=== PATIENT | male | born 1945 | race Caucasian/White ===

== ENCOUNTER → 2017-11-23 09:24 | Outpatient (CLI) | payer MEDICARE, SELFPAY ==
[2017-11-23 12:59] LABS: Anion Gap 9 (5-15); BUN 12 mg/dL (7-18); BUN/Creat Ratio 9.8 RATIO (10-20); Calcium,Total 8.8 mg/dL (8.5-10.1); Chloride 108 mmol/L (98-107); Cholesterol 208 mg/dL (200); Creatinine, Serum 1.22 mg/dL (0.70-1.30); EST Glomerular Filtration Rate 62 mL/min (>60); Est Glom Filt Rate - Afr Amer 75 mL/min (>60); Glucose 92 mg/dL (74-106); High Density Lipoprotein 55 mg/dL; Potassium 4.2 mmol/L (3.5-5.1); Sodium Level 144 mmol/L (136-145); Triglycerides 111 mg/dL; Very Low Density Lipoprotein 22 mg/dL (5-40)
[2017-11-23 13:55] LABS: Hemoglobin A1c 5.9 % (4.2-6.3)
== END ==
PROVIDERS: Family Provider Family Medicine; PCP Family Medicine; Visit Provider Family Medicine
DX: E78.00 Pure hypercholesterolemia, unspecified (principal); R97.20 Elevated prostate specific antigen [PSA]; R73.03 Prediabetes
CPT/HCPCS: 36415; 80048; 80061; 83036; 84153

== ENCOUNTER → 2018-12-13 09:47 | Outpatient (CLI) | payer MEDICARE, SELFPAY ==
[2018-12-13 12:08] LABS: Absolute Lymphocyte Count 2.44 X10^3/ul (0.83-4.51); Absolute Neutrophil Count 3.6 X10^3/uL (2.0-7.7); Basophil# 0.04 X10^3/uL; Basophil% 0.6 % (0-1); Eosinophil# 0.07 X10^3/uL; Eosinophils% 1.1 % (0-5); Hematocrit 43.4 % (40-54); Hemoglobin 14.3 g/dl (13.0-16.5); Lymphocyte # 2.44 X10^3/ul (4.0); Lymphocyte % 36.7 % (19-41); Mean Corp Hgb Conc 32.9 g/gl (32-36); Mean Corpuscular Hgb 29.5 pg (27.0-32.0); Mean Corpuscular Volume 89.7 fL (80-94); Mean Platelet Vol. 12.6 fl (6.2-12.0); Monocyte# 0.45 X10^3/uL; Monocyte% 6.8 % (0-10); Neutrophil # 3.63 X10^3/uL (2.7-7.7); Neutrophil % 54.6 % (47-70); POSITIVE COUNT NO; POSITIVE DIFFERENTIAL NO; POSITIVE MORPHOLOGY NO; Platelet Count 234 K/mm3 (150-450); RBC Distribution Width CV 14.5 % (11.6-14.6); RBC Distribution Width SD 47.5 fl (35.1-43.9); Red Blood Count 4.84 M/mm3 (4.6-6.2); White Blood Count 6.6 K/mm3 (4.4-11.0)
[2018-12-13 12:30] LABS: Anion Gap 8 (5-15); BUN 13 mg/dL (7-18); BUN/Creat Ratio 11.3 RATIO (10-20); Calcium,Total 9.4 mg/dL (8.5-10.1); Chloride 107 mmol/L (98-107); Cholesterol 184 mg/dL (200); Creatinine, Serum 1.15 mg/dL (0.70-1.30); EST Glomerular Filtration Rate 66 mL/min (>60); Est Glom Filt Rate - Afr Amer 80 mL/min (>60); Glucose 101 mg/dL (74-106); High Density Lipoprotein 70 mg/dL; PSA,Total- Diagnostic 4.68 ng/mL (0.0-4.0); Potassium 3.6 mmol/L (3.5-5.1); Sodium Level 143 mmol/L (136-145); Triglycerides 83 mg/dL; Very Low Density Lipoprotein 17 mg/dL (5-40)
== END ==
PROVIDERS: Family Provider Family Medicine; PCP Family Medicine; Referring Provider Family Medicine; Visit Provider Family Medicine
DX: R41.3 Other amnesia (principal); E78.00 Pure hypercholesterolemia, unspecified
CPT/HCPCS: 36415; 80048; 80061; 84153; 85025

== ENCOUNTER 2019-03-24 09:11 | Observation (INO) | payer MEDICARE, SELFPAY ==
[2019-03-24] VITALS (10 sets, daily range): BP systolic 122–146; BP diastolic 66–87; PULSE 52–84; RESP 16–18; TEMP 35.9–36.8; O2SAT 97–100; BMI 25.8; BMI 24.4
--- NOTE | 2019-03-24 09:23 | RAD_ITS ---
STUDY: X-RAY CHEST REASON FOR EXAM: Male, 73 years old. Chest pain. TECHNIQUE: Single AP portable view of the chest. COMPARISON: None. FINDINGS: EKG electrodes are seen. Hyperinflation. There is no demonstrated pleural abnormality. Normal size heart. Normal mediastinum and jordan. Normal visualized pulmonary arteries. There is atherosclerotic tortuosity of the aortic arch and descending thoracic aorta. There are diffuse degenerative changes of the visualized thoracic spine. Normal visualized ribs, clavicles, and shoulders. There is no demonstrated abnormality of the visualized soft tissue structures of the upper abdomen. RAD/Chest 1 View (Portable) IMPRESSION: Hyperinflation. Electronically Signed: Fernandez Johansen, at 9:45 EDT , Service support ,
--- NOTE | 2019-03-24 09:23 | EKG12_ITS ---
Test Reason : CP Blood Pressure : / mmHG Vent. Rate : 056 BPM Atrial Rate : 056 BPM P-R Int : 150 ms QRS Dur : 090 ms QT Int : 452 ms P-R-T Axes : 062 004 042 degrees QTc Int : 436 ms Sinus bradycardia with sinus arrhythmia Low Voltage QRS (Limb Leads) Confirmed by ELIO LAYTON, MARIELLE ([id number]), slot editor GENESIS GARCÍA ([id number]) on 03/26/2019 12:21:14 PM Referred By: Confirmed By:MARIELLE BALLARD MD
--- NOTE | 2019-03-24 09:27 | ED.VISSUMM ---
- ER Visit Summary Date of Service: 03/24/19 Chief Complaint: Chest pain History of Present Illness: The patient is a 73 M presents emergency department for evaluation of chest pain. Patient has a history of dementia and was at his daughter. He also has a history of GERD and hypercholesterolemia. He is never had to have a stress test or heart catheterization before. He states that he is normally very healthy individual. During the middle the night he states that he woke had aching in his chest he states that he was nauseous sweaty and short of breath. He eventually was able to get some sleep this morning he notes that he still nauseous and has a slight ache in his chest. He does not take daily aspirin. Physical Examination: Afebrile vital signs are stable noted heart rate of 56 Gen: Well-nourished well-developed Head: Normocephalic atraumatic Eyes: Perrl EOMI ENT: TMs clear no rhinorrhea moist mucous membranes Neck: Supple no lymphadenopathy no JVD nontender CVS: Regular rate rhythm no murmurs normal S1-S2 Respiratory: No distress clear to auscultation bilaterally chest nontender Abdomen: Soft nontender nondistended normal bowel sounds no masses Back: Nontender Extremity: Nontender no edema Skin: Normal color no rash Neuro: alert CN II-XII intact normal strength sensation Psych: Normal affect normal mood Test Results: EKG shows a sinus bradycardia at a rate of 56 without ectopy. She showed a glucose of 138. Initial troponin was negative. CBC was normal. Chest x-ray negative. Emergency Department Course and Treatment: Patient received Zofran and aspirin. He tells me his nausea is better. At this point the patient's MIGUEL score is 1 heart score is 5. Related to the patient's best interest to stay and get repeat cardiac enzymes and further cardiac evaluation. Dr. Cotto will be admitting Impression: 1. Chest pain This note was generated with [employer] dictation software. It may contain incorrect words, spelling, and punctuation that were not noted in review of the chart prior to signing ED Disposition - Plan for ED Patient: Referrals: Mc Velez MD [Family Provider] -
[2019-03-24 09:32] LABS: Absolute Lymphocyte Count 1.61 X10^3/uL (0.83-4.51); Absolute Neutrophil Count 8.8 X10^3/uL (2.0-7.7); Basophil# 0.03 X10^3/uL; Basophil% 0.3 % (0-1); Eosinophil# 0.01 X10^3/uL; Eosinophils% 0.1 % (0-5); Hematocrit 44.7 % (40-54); Hemoglobin 14.6 g/dL (13.0-16.5); Lymphocyte # 1.61 X10^3/ul (4.0); Lymphocyte % 14.8 % (19-41); Mean Corp Hgb Conc 32.7 g/dL (32-36); Mean Corpuscular Volume 91.8 fL (80-94); Mean Platelet Vol. 11.8 fl (6.2-12.0); Monocyte# 0.36 X10^3/uL; Monocyte% 3.3 % (0-10); NRBC Flagged by Analyzer 0 % (0-5); Neutrophil # 8.83 X10^3/uL (2.7-7.7); Neutrophil % 81.1 % (47-70); Platelet Count 231 K/mm3 (150-450); RBC Distribution Width CV 14.1 % (11.6-14.6); RBC Distribution Width SD 47.7 fl (35.1-43.9); Red Blood Count 4.87 M/mm3 (4.6-6.2); White Blood Count 10.9 K/mm3 (4.4-11.0)
[2019-03-24] MEDS: Ondansetron 4 MG/2 ML Vial IV (09:36)
[2019-03-24 09:43] LABS: Anion Gap 6 (5-15); BUN 17 mg/dL (7-18); BUN/Creat Ratio 14.8 RATIO (10-20); Calcium,Total 9.3 mg/dL (8.5-10.1); Chloride 109 mmol/L (98-107); Creatinine, Serum 1.15 mg/dL (0.70-1.30); EST Glomerular Filtration Rate 66 mL/min (>60); Est Glom Filt Rate - Afr Amer 80 mL/min (>60); Estimated Creatinine Clearance 58.19 ml/min; Glucose 138 mg/dL (74-106); Sodium Level 140 mmol/L (136-145)
[2019-03-24] MEDS: Aspirin 81 MG TAB.CHEW 324 MG PO (09:51)
[2019-03-24] MEDS: Enoxaparin 40 MG/0.4 ML Syringe SC (11:00)
--- NOTE | 2019-03-24 11:00 | PCM.HP.STD ---
History of Present Illness Date of Admission: 03/24/19 Chief Complaint: Chest pain The patient is a 73 year old M with a PMH as below presents from home after having an episode of chest pain that woke him up from sleep earlier this morning. He was able to go back to sleep, however when he woke up later in the morning he told his about the chest pain and she brought him into the hospital. His chest pain has completely resolved, and his nausea resolved with Zofran given in the ER. Initial troponin was negative and EKG was unremarkable. He denies any shortness of breath or radiation of his chest pain. He does have mild dementia that he is treated for otherwise he has been generally healthy. Has never had any cardiac illness in the past. Past Medical History Allergies No Known Allergies Allergy (Verified 03/24/19 09:13) Home Medications: Ambulatory Orders Medication Instructions Recorded Atorvastatin Calcium [Lipitor] 20 mg PO DAILY 03/24/19 Donepezil HCl [Aricept] 10 mg PO DAILY 03/24/19 Memantine HCl [Namenda] 5 mg PO BID 03/24/19 Omeprazole 2 tab PO DAILY 03/24/19 Surgical History: no surgical history Lives: Spouse/ Significant Other Smoking Status: Never smoker Alcohol: None Drugs: None - *Family History Maternal History Items: Cancer Paternal History Items: - - Alcohol Sibling History Items: Heart Disease Review of Systems Constitutional: Denies: Chills, Fever, Weight Change HEENT: Denies: Head Aches, Sinus Congestion, Sinus Drainage Cardiovascular: Reports: Chest Pain. Denies: Palpitations Respiratory: Denies: Cough, Shortness of breath at rest, Sputum production Gastrointestinal: Denies: Abdominal Pain, Nausea, Vomiting Genitourinary: Denies: Dysuria Musculoskeletal: Denies: Joint Pain, Joint Tenderness Skin: Denies: Rash, Wounds Neurological: Denies: Numbness, Tingling, Focal weakness Psychiatric: Denies: Anxiety, Depression Hematologic/ Lymphatic: Denies: Easy Bruising, Easy Bleeding VTE Information - Inpt Only VTE Present on Admission: No - Physical Exam General: Alert, Oriented x3, Cooperative, No apparent distress HEENT: Atraumatic, PERRLA, EOMI, Normocephalic Oral: Moist Mucosa Neck: Supple, No JVD Lungs: Clear to auscultation, Normal air movement, No rhonchi, No wheeze, No rales Cardiovascular: Regular rate, Regular Rhythm, Normal S1, Normal S2, No murmurs Abdomen: Soft, Non Tender, Non-Distended, No Hepato-splenomegaly Extremities: No edema, Capillary Refill Less than 3 Seconds Skin: No rashes, No breakdown Neurological: Neuro grossly intact, Sensory exam intact to light touch and pain Psych/Mental Status: Normal Affect, Appropriate Vital Signs Temp Pulse Resp BP Pulse Ox 97.9 F 55 L 18 146/66 H 99 03/24/19 10:46 03/24/19 10:46 03/24/19 10:46 03/24/19 10:46 03/24/19 10:46 Oxygen Delivery Method Room Air Weight: 165 lb 5.547 oz Body Mass Index (BMI) 24.4 Laboratory Tests Past 24 Hrs 03/24/19 03/24/19 09:17 09:17 WBC 10.9 RBC 4.87 Hgb 14.6 Hct 44.7 MCV 91.8 MCH 30.0 MCHC 32.7 RDW Std Deviation 47.7 H RDW Coeff of Akhil 14.1 Plt Count 231 MPV 11.8 Immature Gran % (Auto) 0.400 Neut % (Auto) 81.1 H Lymph % (Auto) 14.8 L [place] % (Auto) 3.3 Eos % (Auto) 0.1 Baso % (Auto) 0.3 Absolute Neuts (auto) 8.8 H Absolute Lymphs (auto) 1.61 Nucleated RBC % 0 Sodium 140 Potassium 4.0 Chloride 109 H Carbon Dioxide 25.0 Anion Gap 6 BUN 17 Creatinine 1.15 Estim Creat Clear Calc 58.19 Est GFR (MDRD) Af Amer 80 Est GFR (MDRD) Non-Af 66 BUN/Creatinine Ratio 14.8 Glucose 138 H Calcium 9.3 Troponin I < 0.015 Assessment/Plan 1. Chest pain/HLD -Will obtain exercise nuclear stress -Serial troponins, the first 1 in the ER was negative -Continue with his statin -Likely need to start an aspirin -Blood pressure is in the 140 systolic, he will likely need to follow-up as an outpatient with his primary care doctor for evaluation and treatment 2. Dementia -Stable -Continue with his home Namenda and Aricept 3. GERD -Stable -Continue with PPI DVT: Lovenox Code Visit OBSV E&M: 19815 Initial observation care L2
--- NOTE | 2019-03-24 12:39 | EKG12_ITS ---
Test Reason : CP ADMISSION Blood Pressure : / mmHG Vent. Rate : 050 BPM Atrial Rate : 050 BPM P-R Int : 162 ms QRS Dur : 082 ms QT Int : 466 ms P-R-T Axes : 053 -14 000 degrees QTc Int : 424 ms Sinus bradycardia Otherwise normal ECG When compared with ECG of 24-MAR-2019 09:17, MANUAL COMPARISON REQUIRED, DATA IS UNCONFIRMED Confirmed by ILIANA LAYTON, EDNA ([id number]), acquisitions editor GENESIS GARCÍA ([id number]) on 04/01/2019 10:50:11 AM Referred By: ISIDRA Confirmed By:ARTURO BARRIENTOS MD
[2019-03-24] MEDS: Donepezil HCl 10 MG Tablet PO (21:24)
[2019-03-24] MEDS: Memantine Hydrochloride 5 MG Tablet PO (21:24)
[2019-03-24] MEDS: Atorvastatin Calcium 20 MG Tablet PO (21:24)
[2019-03-24] MEDS: Zolpidem Tartrate 5 MG Tablet PO (22:12)
--- NOTE | 2019-03-24 22:58 | NURSING ---
Verbal report received from Natalia Churchill RN. This RN will resume care of patient at this time.
[2019-03-25 03:06] VITALS: PULSE 52
[2019-03-25 03:25] VITALS: BP 128/72; PULSE 56; RESP 21; TEMP 36.8; O2SAT 98
[2019-03-25 05:26] VITALS: BP 131/79; PULSE 52; RESP 19; TEMP 36.8; O2SAT 97
--- NOTE | 2019-03-25 05:55 | EKG12_ITS ---
Test Reason : AM EKG Blood Pressure : / mmHG Vent. Rate : 052 BPM Atrial Rate : 052 BPM P-R Int : 156 ms QRS Dur : 090 ms QT Int : 446 ms P-R-T Axes : 060 -10 028 degrees QTc Int : 414 ms Sinus bradycardia Otherwise normal ECG When compared with ECG of 24-MAR-2019 10:38, MANUAL COMPARISON REQUIRED, DATA IS UNCONFIRMED Confirmed by ILIANA LAYTON, EDNA ([id number]), editor & co founder GENESIS GARCÍA ([id number]) on 04/01/2019 10:51:10 AM Referred By: ASHLEY Confirmed By:ARTURO BARRIENTOS MD
[2019-03-25 07:14] VITALS: PULSE 52
[2019-03-25] MEDS: Memantine Hydrochloride 5 MG Tablet PO (10:13)
[2019-03-25] MEDS: Pantoprazole Sodium 40 MG Tablet PO (10:14)
[2019-03-25 10:15] VITALS: BP 119/75; PULSE 68; RESP 16; TEMP 37; O2SAT 95
--- NOTE | 2019-03-25 11:34 | STRESSREP_ITS ---
Stress Test Report Date: 03-25-19 Procedure: Exercise tolerance test/imaging study Indications: Chest pain; shortness of breath Consent: Per the patient Procedure: The patient exercised on a Mekhi protocol for 9 minutes completing Stage III achieving a peak heart rate of 151 bpm (103 % predicted maximal heart rate) with a peak blood pressure 158/90 mmHg and a peak MET capacity of 10 METs. The baseline ECG demonstrated sinus bradycardia. The peak exercise ECG demonstrated somatic/motion artifact with no obvious ECG changes. There were no cardiac dysrhythmias pretest, during exercise, or recovery. The functional capacity was considered. There was no complaint of chest discomfort during exercise or recovery. The examination was discontinued secondary to dyspnea. Impression: 1. Technically adequate (percent predicted maximal heart rate greater than 85%) exercise tolerance test 2. Peak exercise ECG demonstrated somatic/motion artifact with no obvious ECG changes 3. There were no cardiac dysrhythmias pretest, during exercise, or recovery 4. Nuclear images pending Myocardial perfusion imaging study: Technique: The patient was injected with 11.0 mCi of technetium 99m Cardiolite and subsequently rest SPECT Cardiolite nuclear imaging was obtained in the horizontal long, vertical long, and short axis views. The patient exercised on a Mekhi protocol for 9 minutes completing Stage III achieving a peak heart rate of 151 bpm (103 % predicted maximal heart rate) with a peak blood pressure 158/90 mmHg and a peak MET capacity of 10 METs. The patient was injected with 33.2 mCi of technetium 99m Cardiolite and subsequently stress SPECT Cardiolite nuclear imaging was obtained in the horizontal long, vertical long, and short axis v iews. A gated Cardiolite study at peak stress was obtained. Interpretation: Rest and stress SPECT Cardiolite nuclear imaging status post realignment, normalization, and attenuation correction, demonstrates the appearance of extracardiac/gastrointestinal tracer uptake especially near the inferior segments being somewhat more prominent at rest as opposed to stress. Otherwise there appears to be relative uniform tracer uptake. There is end systolic thickening and brightening. The gated Cardiolite study demonstrates myocardial thickening and inward wall motion. The reported LVEF is 77 %. Impression: 1. Rest and stress SPECT Cardiolite nuclear imaging demonstrate the appearance of extra cardiac/gastrointestinal tracer uptake near the inferior segments that appears to be somewhat more prominent at rest as opposed to stress and otherwise appears to demonstrate relative uniform tracer uptake with no myocardial perfusion changes considered diagnostic for associated stress-induced myocardial ischemia. 2. The gated Cardiolite study reports an LVEF of 77 %. This note was generated with [employer] software. It may contain incorrect words, spelling, and punctuation that were not noted in checking the note before signing.
--- NOTE | 2019-03-25 11:43 | DCINST_ITS ---
You will use the following diet at home:: Cardiac Your food should be the consistency of: Regular Your liquids should be the consistency of: Regular/Thin Discharge Activity: Return to Normal Activity Call your doctor if you observe: Fever of 101 or Higher, Shortness of breath, Dizziness, Fainting spells, Swelling in the ankles, Chest pain, Increased palpitations (irregular heartbeat) Allergies/Adverse Reactions: Allergies No Known Allergies Allergy (Verified 03/24/19 09:13) Medications to take at Discharge Atorvastatin Calcium [Lipitor] 20 mg PO DAILY 03/24/19 Donepezil HCl [Aricept] 10 mg PO DAILY 03/24/19 Memantine HCl [Namenda] 5 mg PO BID 03/24/19 Omeprazole 2 tab PO DAILY 03/24/19 Primary Care Physician: Mc Velez MD [Family Provider] - Please follow up with your Primary Care Physician in: 3-5 days Test Results: Test results from this visit will be discussed in further detail at your follow- up appointment, if applicable.
--- NOTE | 2019-03-25 14:24 | DS.PCM_ITS ---
Discharge Date and Diagnosis Date of Admission: 03/24/19 Date of Discharge: 03/25/19 Hospital Course and Treatment Imaging Results: Stress Test: Impression: 1. Technically adequate (percent predicted maximal heart rate greater than 85%) exercise tolerance test 2. Peak exercise ECG demonstrated somatic/motion artifact with no obvious ECG changes 3. There were no cardiac dysrhythmias pretest, during exercise, or recovery 4. Nuclear images pending Myocardial perfusion imaging study: Technique: The patient was injected with 11.0 mCi of technetium 99m Cardiolite and subsequently rest SPECT Cardiolite nuclear imaging was obtained in the horizon zoë long, vertical long, and short axis views. The patient exercised on a Mekhi protocol for 9 minutes completing Stage III achieving a peak heart rate of 151 bpm (103 % predicted maximal heart rate) with a peak blood pressure 158/90 mmHg and a peak MET capacity of 10 METs. The patient was injected with 33.2 mCi of technetium 99m Cardiolite and subsequently stress SPECT Cardiolite nuclear imaging was obtained in the horizontal long, vertical long, and short axis views. A gated Cardiolite study at peak stress was obtained. Interpretation: Rest and stress SPECT Cardiolite nuclear imaging status post realignment, normalization, and attenuation correction, demonstrates the appearance of extracardiac/gastrointestinal tracer uptake especially near the inferior segments being somewhat more prominent at rest as opposed to stress. Otherwise there appears to be relative uniform tracer uptake. There is end systolic thickening and brightening. The gated Cardiolite study demonstrates myocardial thickening and inward wall motion. The reported LVEF is 77 %. Impression: 1. Rest and stress SPECT Cardiolite nuclear imaging demonstrate the appearance of extra cardiac/gastrointestinal tracer uptake near the inferior segments that appears to be somewhat more prominent at rest as opposed to stress and otherwise appears to demonstrate relative uniform tracer uptake with no myocardial perfus ion changes considered diagnostic for associated stress-induced myocardial ischemia. 2. The gated Cardiolite study reports an LVEF of 77 %. Consults: None Operations: None Procedures: Nuclear stress test Summary of Care Provided: Per HPI: The patient is a 73 year old M with a PMH as below presents from home after having an episode of chest pain that woke him up from sleep earlier this morning. He was able to go back to sleep, however when he woke up later in the morning he told his about the chest pain and she brought him into the hospital. His chest pain has completely resolved, and his nausea resolved with Zofran given in the ER. Initial troponin was negative and EKG was unremarkable. He denies any shortness of breath or radiation of his chest pain. He does have mild dementia that he is treated for otherwise he has been generally healthy. Has never had any cardiac illness in the past. Hospital Course: 1. Chest pain/[id number]-[id number]-old male with no significant past medical history presented with chest pain that started on the morning of admission. He denies any radiation or shortness of breath with the chest pain but did have some diaphoresis and nausea. His chest pain had resolved prior to my evaluation on admission. He had serial troponins which were all negative, and he underwent a stress test on the day of discharge which was also normal. He was discharged home with outpatient follow-up and it was discussed with him and his that if he were to have any further chest pain or shortness of breath that he is to return to the hospital. Objective: General: Alert, Oriented x3, Cooperative, No apparent distress HEENT: Atraumatic, PERRLA, EOMI, Normocephalic Oral: Moist Mucosa Neck: Supple, No JVD Lungs: Clear to auscultation, Normal air movement, No rhonchi, No wheeze, No rales Cardiovascular: Regular rate, Regular Rhythm, Normal S1, Normal S2, No murmurs Abdomen: Soft, Non Tender, Non-Distended, No Hepato-splenomegaly Extremities: No edema, Capillary Refill Less than 3 Seconds Skin: No rashes, No breakdown Neurological: Neuro grossly intact, Sensory exam intact to light touch and pain Psych/Mental Status: Normal Affect, Appropriate - Physical Exam Vital Signs Temp Pulse Resp BP Pulse Ox 98.6 F 68 16 119/75 95 03/25/19 10:15 03/25/19 10:15 03/25/19 10:15 03/25/19 10:15 03/25/19 10:15 Oxygen Delivery Method Room Air Weight: 165 lb 5.547 oz Body Mass Index (BMI) 24.4 Intake and Output for Last 24 Hours 03/23/19 03/24/19 03/25/19 23:59 23:59 23:59 Intake Total 950 / 950 150 / 150 Balance 950 / 950 150 / 150 Laboratory Tests Past 24 Hrs 03/24/19 15:25 Troponin I < 0.015 Discharge Activity: Return to Normal Activity Call your doctor if you observe: Fever of 101 or Higher, Shortness of breath, Dizziness, Fainting spells, Swelling in the ankles, Chest pain, Increased palpitations (irregular heartbeat) Home Medications: Medications to take at Discharge Atorvastatin Calcium [Lipitor] 20 mg PO DAILY 03/24/19 Donepezil HCl [Aricept] 10 mg PO DAILY 03/24/19 Memantine HCl [Namenda] 5 mg PO BID 03/24/19 Omeprazole 2 tab PO DAILY 03/24/19 Primary Care Physician: Mc Velez MD [STAFF PHYSICIAN] - Please follow up with your Primary Care Physician in: 3-5 days Please Follow Up With: Mc Velez MD Disposition: Home Patient Condition:: Stable Medical Necessity - Tobacco Use Smoking Status: Never smoker Meaningful Use Info Meaningful Use Diagnoses (Choose all that apply): None applicable Code Visit OBSV E&M: 61807 Observation care discharge
--- NOTE | 2019-03-25 17:26 | NURSING ---
this RN agrees with all charting completed by SN
== END 2019-03-25 11:43 | disposition home or self-care (01) ==
LOC: ED 09:34 → PCU 10:04
PROVIDERS: Admitting Provider Family Medicine; Emergency Provider Emergency Medicine; Family Provider Family Medicine; PCP Family Medicine; Visit Provider Family Medicine
DX: R07.89 Other chest pain (principal); K21.9 Gastro-esophageal reflux disease without esophagitis; R00.1 Bradycardia, unspecified; R06.02 Shortness of breath; Z79.899 Other long term (current) drug therapy; F03.90 Unspecified dementia, unspecified severity, without behavioral disturbance, psychotic disturbance, mood disturbance, and anxiety; E78.5 Hyperlipidemia, unspecified
CPT/HCPCS: 36415; 71045; 78452; 80048; 84484; 85025; 93005; 93017; 96372; 96374; 99218; 99285; A9500; A4216; G0378; J2405

== ENCOUNTER → 2019-05-29 07:27 | Outpatient (CLI) | payer MEDICARE, SELFPAY ==
[2019-03-24 10:29] VITALS: BMI 24.4
[2019-05-29 10:44] LABS: Vitamin B12 472 pg/mL (211-911); Vitamin D,25 Hydroxy 26.7 ng/mL (29.95-100.01)
[2019-05-29 11:15] LABS: Thyroid Stim Hormone (TSH) 3.38 uIU/mL (0.358-3.74)
== END ==
LOC: LAB.FUTURE 07:29 → MTLAB 07:32
PROVIDERS: Family Provider Family Medicine; PCP Family Medicine; Referring Provider Family Medicine; Visit Provider Family Medicine
DX: R41.3 Other amnesia (principal); E55.9 Vitamin D deficiency, unspecified
CPT/HCPCS: 36415; 82306; 82607; 82746; 84443

== ENCOUNTER → 2020-02-26 08:56 | Outpatient (CLI) | payer MEDICARE, SELFPAY ==
[2019-03-24 10:29] VITALS: BMI 24.4
[2020-02-26 10:22] LABS: Vitamin D,25 Hydroxy 29.4 ng/mL
[2020-02-26 10:31] LABS: ALB/GLOB Ratio 1.1 RATIO (0.9-2.4); AST(SGOT) 24 U/L (15-37); Alanine Aminotransfer ALT/SGPT 25 U/L (16-61); Albumin, Serum 3.5 g/dL (3.2-5.0); Alkaline Phosphatase 92 U/L (45-117); Anion Gap 4 (5-15); BUN 14 mg/dL (7-18); BUN/Creat Ratio 11.6 RATIO (10-20); Calcium,Total 8.9 mg/dL (8.5-10.1); Chloride 111 mmol/L (98-107); Cholesterol 193 mg/dL (200); Creatinine, Serum 1.21 mg/dL (0.70-1.30); EST Glomerular Filtration Rate 62 mL/min (>60); Est Glom Filt Rate - Afr Amer 75 mL/min (>60); Globulin 3.3 g/dL (2.2-4.2); Glucose 99 mg/dL (74-106); High Density Lipoprotein 67 mg/dL; Potassium 3.6 mmol/L (3.5-5.1); Protein, Total 6.8 g/dL (6.4-8.2); Sodium Level 144 mmol/L (136-145); Triglycerides 76 mg/dL; Very Low Density Lipoprotein 15 mg/dL (5-40)
== END ==
PROVIDERS: PCP Family Medicine; Referring Provider Family Medicine; Visit Provider Family Medicine
DX: E55.9 Vitamin D deficiency, unspecified (principal); E78.00 Pure hypercholesterolemia, unspecified
CPT/HCPCS: 36415; 80053; 80061; 82306

== ENCOUNTER → 2021-01-20 14:52 | Outpatient (CLI) | payer MEDICARE, SELFPAY ==
[2019-03-24 10:29] VITALS: BMI 24.4
[2021-01-23 11:13] LABS: PSA, Free 1.02 ng/mL; PSA, Free % 22.2 % (.); PSA, Total Ultrasensitive 4.6 ng/mL (0.0-4.0)
== END ==
PROVIDERS: PCP Family Medicine; Referring Provider Family Medicine; Visit Provider Family Medicine
DX: N40.0 Benign prostatic hyperplasia without lower urinary tract symptoms (principal); R97.20 Elevated prostate specific antigen [PSA]
CPT/HCPCS: 36415; 84153; 84154

== ENCOUNTER → 2021-01-21 | Outpatient (CLI) | payer MEDICARE, SELFPAY ==
[2019-03-24 10:29] VITALS: BMI 24.4
== END | disposition home or self-care (01) ==
PROVIDERS: PCP Family Medicine; Visit Provider Family Medicine
DX: R31.9 Hematuria, unspecified (principal)
CPT/HCPCS: 87077; 87086; 87088

== ENCOUNTER → 2021-03-03 13:22 | Outpatient (CLI) | payer MEDICARE, SELFPAY ==
--- NOTE | 2021-03-03 13:25 | RAD_ITS ---
STUDY: X-RAY - LUMBAR SPINE REASON FOR EXAM: Male, 75 years old. BACK PAIN TECHNIQUE: 5 view(s) of the lumbar spine were obtained. COMPARISON: None FINDINGS: Please see the impression. RAD/L/S Spine Min 4 Views IMPRESSION: No definite acute fracture or subluxation in the lumbar spine. Moderate to severe multilevel lumbar spondylosis. No definite pars defect. Mild dextroscoliosis of the lumbar spine. 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 Electronically Signed: Gal Gan MD at 21:02 EDT Tel , Service support ,
== END ==
PROVIDERS: PCP Family Medicine; Referring Provider Family Medicine; Visit Provider Family Medicine
DX: M54.9 Dorsalgia, unspecified (principal)
CPT/HCPCS: 72110

== ENCOUNTER 2022-06-12 15:48 | Emergency (ER) | payer MEDICARE, MEDICAID, SELFPAY ==
[2022-06-12 15:49] VITALS: BP 148/73; PULSE 63; RESP 16; TEMP 36.6; O2SAT 99; BMI 21.4
--- NOTE | 2022-06-12 16:05 | CT_ITS ---
STUDY: CT BRAIN WITHOUT CONTRAST REASON FOR EXAM: Male, 76 years old. Change in Mental Status RADIATION DOSAGE (If Supplied By Facility): CTDIvol = ( 44.99 ) mGy, DLP = ( 866.41 ) mGycm TECHNIQUE: Transaxial CT imaging of the brain was performed without administration of intravenous contrast material. Individualized dose optimization techniques were used for this CT. COMPARISON: No relevant priors. FINDINGS: Normal soft tissue structures. Normal calvarium. There is moderate cerebral atrophy with widening of the extra-axial spaces and ventricular dilatation. There are areas of decreased attenuation within the white matter tracts of the supratentorial brain, consistent with microvascular disease changes. Normal basal ganglia and thalami. Normal brainstem. Normal cerebellum. There is no intracranial hemorrhage. There are no findings of an acute ischemic infarction. Air-fluid level in the right maxillary sinus consistent with acute sinusitis. CT/Brain/Head without Contrast IMPRESSION: Chronic involutional changes of the brain. Electronically Signed: Leonardo Minor MD at 17:24 EST ,
--- NOTE | 2022-06-12 16:05 | EX.ED.VIS.PS ---
HPI HPI - Psych History of Present Illness Chief Complaint: Mental Health Detail of Chief Complaint: Aggressive behavior, dementia Narrative Narrative: Patient reportedly brought in by police secondary to agitation and combativeness. Patient has a history of Alzheimer's dementia. We are told he was threatening to walk out into the street. Patient is cooperative at this time and states he does not remember what happened earlier today. He has no complaints. [facility] Medical History AD (Alzheimer's disease) BPH (benign prostatic hyperplasia) Dementia Dizziness GERD (gastroesophageal reflux disease) Syncope Home Medications atorvastatin 20 mg tablet 20 mg PO DAILY cholesterol 03/24/19 [History Last Taken Unknown] donepezil 10 mg tablet 10 mg PO DAILY memory 03/24/19 [History Last Taken Unknown] memantine 5 mg tablet 5 mg PO BID memory 03/24/19 [History Last Taken Unknown] omeprazole 20 mg tablet,delayed release 2 tab PO DAILY reflux 03/24/19 [History Last Taken Unknown] cholecalciferol (vitamin D3) 50 mcg (2,000 unit) tablet 2,000 unit PO DAILY 07/07/19 [History Last Taken Unknown] Allergy/AdvReac Type Severity Reaction Status Date / Time lovastatin [From Mevacor] Allergy Intermediate Upset Verified 07/07/19 10:55 Stomach Social History Smoking Status: Never smoker ROS ROS ED Constitutional Constitutional ED: Denies chills or fever(s) Eyes Eyes: Denies change in vision or discharge from eye(s) ENT ENT ED: Denies discharge from eye(s), rhinorrhea or sore throat Cardiovascular Cardiovascular: Denies chest pain or palpitations Respiratory/Chest Respiratory/Chest: Denies cough or dyspnea Gastrointestinal Gastrointestinal: Denies abdominal pain, nausea or vomiting Genitourinary Genitourinary ED: Denies dysuria Musculoskeletal Musculoskeletal: Denies back pain or extremity pain Integumentary Denies Abrasions or rash Neurologic Neurologic: Denies headache(s) or weakness Psychiatric Psychiatric: Denies anxiety or depression Allergic/Immunologic Allergic/Immunologic ED: Denies lip swelling or urticaria EXAM Physical Exam Const Vital Signs: 06/12/22 15:49 06/12/22 17:15 Temperature 98 F Temperature Source Temporal Pulse Rate 63 Respiratory Rate 16 18 Blood Pressure 148/73 H Blood Pressure Mean 98 Pulse Ox 99 Oxygen Delivery Method Room Air Room Air Positive well nourished and well developed General Appearance ED: well developed HEENT Reports normocephalic and head/scalp atraumatic Eyes PERRL and EOMs intact bilaterally Neck supple Chest Wall inspection of chest normal and palpation of chest normal Resp normal respiratory effort and clear to auscultation bilaterally Cardio regular rate and regular rhythm GI normal to inspection, nondistended, normoactive bowel sounds Palpation: soft Extremity normal to inspection Neuro no sensory deficits noted Sensorium / Orientation: alert Motor Exam: strength 5/5 throughout Psych Psych Narrative: Patient with history of Alzheimer's dementia. States he does not remember what happened earlier today. Does not know why he is here and he has no complaints. Skin no rashes or lesions noted MDM MDM MDM Narrative Medical decision making narrative: Blood work for medical clearance obtained. Social work saw the patient and evaluated him. Lab Data Labs: Laboratory Results - last 24 hr 06/12/22 06/12/22 06/12/22 16:20 16:20 16:20 WBC 6.4 RBC 4.48 L Hgb 13.8 Hct 41.6 MCV 92.9 MCH 30.8 MCHC 33.2 RDW Std Deviation 50.2 H RDW Coeff of Akhil 14.6 Plt Count 229 MPV 12.2 H Immature Gran % (Auto) 0.300 Neut % (Auto) 63.0 Lymph % (Auto) 28.5 [place] % (Auto) 5.8 Eos % (Auto) 1.9 Baso % (Auto) 0.5 Absolute Neuts (auto) 4.0 Absolute Lymphs (auto) 1.83 Nucleated RBC % 0 Sodium 141 Potassium 3.4 L Chloride 110 H Carbon Dioxide 27.0 Anion Gap 4 L BUN 14 Creatinine 1.21 Estim Creat Clear Calc 52.01 Est GFR (MDRD) Af Amer 75 Est GFR (MDRD) Non-Af 62 BUN/Creatinine Ratio 11.6 Glucose 144 H Calcium 8.9 Ethyl Alcohol < 3.0 Radiography Diagnostic Testing: Clinical Impression(s) from Imaging Studies Brain CT 06/12/22 16:05 IMPRESSION: Chronic involutional changes of the brain. Electronically Signed: Leonardo Minor MD at 17:24 EST , Treatment and Re-Evaluation Narrative: Social work spoke with the [facility] where the patient resides. They state that anytime his comes to visit and leaves he becomes upset. He paces for about 15 or 20 minutes and makes threats to leave. Shortly after he will forget about the whole incident and be okay the rest of the day. At this time patient states he does not remember becoming upset earlier. He voices on several occasions he has no intention of hurting himself. [facility] did state that if his work-up here was unremarkable they would be willing to take him back. CBC and chemistry studies significantly for slightly low potassium at 3.4. Head CT shows chronic involutional changes. Patient will be discharged back to [facility]. Discharge Plan Triage Chief Complaint: Mental Health ED Provider: Manisha Bray Dx/Rx/DC Orders Clinical Impression: Dementia Instructions: Dementia Caregiver Tips, ED CAREGIVER SUPPORT for DEMENTIA Prescriptions: No Action cholecalciferol (vitamin D3) 2,000 unit tablet 2,000 unit PO DAILY atorvastatin 20 MG tablet 20 mg PO DAILY donepezil 10 MG tablet 10 mg PO DAILY memantine 5 MG tablet 5 mg PO BID omeprazole 20 MG tablet,delayed release (DR/EC) 2 tab PO DAILY Primary Care Provider: Kay Cai Referrals: Kay Cai MD [Primary Care Provider] - Disposition Disposition: Detention Facility Discharge Location: [facility]
--- NOTE | 2022-06-12 16:21 | ED.RN ---
PER DR. BOYLE, NO SITTER NEEDED FOR PT OF 1618.
[2022-06-12 16:51] LABS: Absolute Lymphocyte Count 1.83 X10^3/uL (0.83-4.51); Basophil# 0.03 X10^3/uL; Basophil% 0.5 % (0-1); Eosinophil# 0.12 X10^3/uL; Eosinophils% 1.9 % (0-5); Hematocrit 41.6 % (40-54); Hemoglobin 13.8 g/dL (13.0-16.5); Lymphocyte # 1.83 X10^3/ul (0.83-4.51); Lymphocyte % 28.5 % (19-41); Mean Corp Hgb Conc 33.2 g/dL (32-36); Mean Corpuscular Hgb 30.8 pg (27.0-32.0); Mean Corpuscular Volume 92.9 fL (80-94); Mean Platelet Vol. 12.2 fl (6.2-12.0); Monocyte# 0.37 X10^3/uL; Monocyte% 5.8 % (0-10); NRBC Flagged by Analyzer 0 % (0-5); Neutrophil # 4.04 X10^3/uL (2.7-7.7); Platelet Count 229 K/mm3 (150-450); RBC Distribution Width CV 14.6 % (11.6-14.6); RBC Distribution Width SD 50.2 fl (35.1-43.9); Red Blood Count 4.48 M/mm3 (4.6-6.2); White Blood Count 6.4 K/mm3 (4.4-11.0)
[2022-06-12 17:04] LABS: Anion Gap 4 (5-15); BUN 14 mg/dL (7-18); BUN/Creat Ratio 11.6 RATIO (10-20); Calcium,Total 8.9 mg/dL (8.5-10.1); Chloride 110 mmol/L (98-107); Creatinine, Serum 1.21 mg/dL (0.70-1.30); EST Glomerular Filtration Rate 62 mL/min (>60); Est Glom Filt Rate - Afr Amer 75 mL/min (>60); Estimated Creatinine Clearance 52.01 ml/min; Glucose 144 mg/dL (74-106); Potassium 3.4 mmol/L (3.5-5.1); Sodium Level 141 mmol/L (136-145)
[2022-06-12 17:06] LABS: Alcohol, Blood (Medical)-Serum < 3.0 mg/dL
[2022-06-12 17:15] VITALS: RESP 18
--- NOTE | 2022-06-12 18:12 | CM.ED ---
Addendum entered by Brittany Conway 06/12/22 18:43: ARUN heard RN advise that patient is leaving to return to [facility] in 25-30 minutes. ARUN confirmed with RN that patient is being discharged. ARUN called Sherine at the [facility] and updated her that patient will be returning to the [facility] in 25-30 minutes. Plan: Return to [facility] Brittany Zoraida GALLARDO Original Note: Referral Source: MD Referral Reason: Mental Health Chief Complaint: ARUN asked patient why he is at the hospital, and he said, ?I have no idea?? and then voiced he had no idea where his family is at. ARUN spoke to Sherine at [facility]. She stated that today patient had been pacing and agitated and stated that he was going to step into traffic. Sherine said that patient?s history is that he gets agitated (which is unpredictable) and begins pacing wearing his jacket and states he is going to leave. Sherine said that he paces for 15-20 minutes and then goes back to the room and he has forgotten statements about self-harm. Prior to today patient had made statement on the about putting a ?knife through his chest?. SW asked patient about SI and patient reports he has no thoughts, plans or attempts. Patient said that he never wanted to and ?always wanted to live?. Patient said he is not planning on hurting himself ?unless I have to? and social media job titles asked, ?what would make patient have to? and he said ?? if I don?t have any family... I don?t know?. SW asked about patient?s thoughts about running into traffic and he said, ?that was a long time ago?. Patient again voiced no intent to harm himself stating ?I would never harm myself?. Patient said that ?if I don?t have family I would need to rely on neighbors?. Patient repeatedly voiced no SI. Marital Status: Patient said that he is not but ?I might have been but not now?. Per chart patient is . Living Situation: Patient is from [facility]. Patient said that he ?used to live in [place]? but was not sure where he was currently except for a hospital. Support: ARUN asked patient about supports and he said, ?I never had no problems?. history: Denied Education and Employment: Patient graduated from high school. Patient began to work at [employer] in [place] after high school. Patient was unsure how many years he worked at [employer]. Mental Health History: Patient reports he has never had any MH issues ?that I know of?. Patient denied ever having a counselor or psychiatrist. Per Sherine at [facility] patient is seen by psych counselor in the facility and has a psych assessment scheduled for 06/22/22 with a psychiatric provider. Triggers and stressors: SW asked patient if he gets stressed or upset and he said ?not really. I don?t get anything?. Coping skills: ?watching TV? ? Abuse Issues: Denied Substance Abuse: Denied ? Suicide Thoughts: Denied SI and voice no thoughts, plans or attempts. Denied intent. Homicidal: Denied Violence: Denied MSE Orientation: x4 Memory: Poor ?Appearance: Clean and appropriate Mood and Affect: Appropriate. Engaged in conversation easily. Communication Patterns: Responds to questions Thought Process: Patient voices concern that he has no family. Patient?s current thought process appears to be related to delusions that he has no family. ? General Functioning: Average Judgement: Impaired Insight: Impaired SW spoke to MD Bray. Patient has diagnosis of dementia, and his behavior is consistent with dementia. SW spoke to [facility] who spoke to JB who stated that if patient is evaluated and has no SI risk he can return to the [facility]. Patient?s behavior is consistent with dementia diagnosis. Plan: Return to [place] [facility]. Following up with psychiatric provider on 06/22/22 Brittany GALLARDO
[2022-06-12 18:26] VITALS: RESP 18
[2022-06-12 18:38] LABS: Amphetamine Urine VISTA NEGATIVE (<1000 ng/mL); Barbiturate Urine VISTA NEGATIVE (< 200 ng/mL); Benzodiazepine Urine VISTA NEGATIVE (< 200 ng/mL); Cocaine Urine VISTA NEGATIVE (< 300 ng/mL); Ecstacy Urine VISTA NEGATIVE (< 500 ng/mL); Methadone Urine VISTA NEGATIVE (< 300 ng/mL); PCP Urine VISTA NEGATIVE (< 25 ng/mL); THC Urine VISTA NEGATIVE (< 50 ng/mL); Vista UDS pH Range 7
--- NOTE | 2022-06-12 18:49 | ED.RN ---
THIS RN ATTEMPTED TO CALL REPORT [facility] AND WAS PUT ON HOLD FOR 10 MINUTES. ANESTHESIOLOGY PHYSICIAN AT THE [facility] STATED SHE WAS UNABLE TO FIND NURSE TO TAKE REPORT FROM THIS RN. THIS RN ASKED IF THE [facility] WOULD CALL [facility] ER WHEN NURSE AVAILABLE TO TAKE REPORT.
[2022-06-12 19:02] VITALS: RESP 16
== END 2022-06-12 19:05 | disposition skilled nursing facility (03) ==
PROVIDERS: Emergency Provider Emergency Medicine; PCP Family Medicine; Visit Provider Emergency Medicine
DX: Z04.6 Encounter for general psychiatric examination, requested by authority (principal); F02.80 Dementia in other diseases classified elsewhere, unspecified severity, without behavioral disturbance, psychotic disturbance, mood disturbance, and anxiety; G30.9 Alzheimer's disease, unspecified; R45.1 Restlessness and agitation
CPT/HCPCS: 36415; 70450; 80048; 80307; 82077; 85025; 87811; 99284

== ENCOUNTER → 2022-10-05 | Outpatient (REF) | payer MEDICAID, SELFPAY ==
[2022-10-05 07:25] LABS: Absolute Lymphocyte Count 2.17 X10^3/uL (0.83-4.51); Basophil# 0.05 X10^3/uL; Basophil% 0.8 % (0-1); Eosinophil# 0.18 X10^3/uL; Hematocrit 41.7 % (40-54); Hemoglobin 13.3 g/dL (13.0-16.5); Lymphocyte # 2.17 X10^3/ul (0.83-4.51); Lymphocyte % 36.7 % (19-41); Mean Corp Hgb Conc 31.9 g/dL (32-36); Mean Corpuscular Hgb 30.4 pg (27.0-32.0); Mean Corpuscular Volume 95.4 fL (80-94); Mean Platelet Vol. 12.2 fl (6.2-12.0); Monocyte% 8.4 % (0-10); NRBC Flagged by Analyzer 0 % (0-5); Neutrophil % 50.8 % (47-70); Platelet Count 203 K/mm3 (150-450); RBC Distribution Width CV 14.4 % (11.6-14.6); RBC Distribution Width SD 50.9 fl (35.1-43.9); Red Blood Count 4.37 M/mm3 (4.6-6.2); White Blood Count 5.9 K/mm3 (4.4-11.0)
[2022-10-05 07:35] LABS: Anion Gap 2 (5-15); BUN 25 mg/dL (7-18); BUN/Creat Ratio 19.4 RATIO (10-20); Calcium,Total 8.9 mg/dL (8.5-10.1); Chloride 114 mmol/L (98-107); Creatinine, Serum 1.29 mg/dL (0.70-1.30); EST Glomerular Filtration Rate 57 mL/min (>60); Est Glom Filt Rate - Afr Amer 69 mL/min (>60); Glucose 102 mg/dL (74-106); Sodium Level 140 mmol/L (136-145)
== END | disposition home or self-care (01) ==
LOC: OLS.WHLTSB 05:00
PROVIDERS: PCP Family Medicine; Visit Provider Internal Medicine
DX: F02.80 Dementia in other diseases classified elsewhere, unspecified severity, without behavioral disturbance, psychotic disturbance, mood disturbance, and anxiety (principal); G30.9 Alzheimer's disease, unspecified; E78.5 Hyperlipidemia, unspecified
CPT/HCPCS: 36415; 80048; 85025

== ENCOUNTER → 2022-10-10 | Outpatient (REF) | payer MEDICARE, MEDICAID, SELFPAY ==
[2022-10-10 09:21] LABS: Absolute Lymphocyte Count 2.11 X10^3/uL (0.83-4.51); Absolute Neutrophil Count 3.9 X10^3/uL (2.0-7.7); Basophil# 0.06 X10^3/uL; Basophil% 0.9 % (0-1); Eosinophil# 0.23 X10^3/uL; Eosinophils% 3.4 % (0-5); Hematocrit 38.4 % (40-54); Hemoglobin 12.5 g/dL (13.0-16.5); Lymphocyte # 2.11 X10^3/ul (0.83-4.51); Lymphocyte % 30.9 % (19-41); Mean Corp Hgb Conc 32.6 g/dL (32-36); Mean Corpuscular Hgb 30.6 pg (27.0-32.0); Mean Corpuscular Volume 93.9 fL (80-94); Mean Platelet Vol. 12.1 fl (6.2-12.0); Monocyte# 0.54 X10^3/uL; Monocyte% 7.9 % (0-10); NRBC Flagged by Analyzer 0 % (0-5); Neutrophil # 3.86 X10^3/uL (2.7-7.7); Neutrophil % 56.5 % (47-70); Platelet Count 203 K/mm3 (150-450); RBC Distribution Width CV 14.3 % (11.6-14.6); RBC Distribution Width SD 49.7 fl (35.1-43.9); Red Blood Count 4.09 M/mm3 (4.6-6.2); White Blood Count 6.8 K/mm3 (4.4-11.0)
[2022-10-10 09:34] LABS: Vitamin D,25 Hydroxy 22.9 ng/mL
[2022-10-10 09:53] LABS: AST(SGOT) 23 U/L (15-37); Alanine Aminotransfer ALT/SGPT 23 U/L (16-61); Albumin, Serum 2.9 g/dL (3.2-5.0); Alkaline Phosphatase 71 U/L (45-117); Bilirubin, Direct 0.09 mg/dL (0.00-0.30); Cholesterol 223 mg/dL (200); Globulin 2.8 g/dL (2.2-4.2); High Density Lipoprotein 53 mg/dL; Protein, Total 5.7 g/dL (6.4-8.2); Thyroid Stim Hormone (TSH) 1.93 uIU/mL (0.358-3.74); Triglycerides 124 mg/dL; Very Low Density Lipoprotein 25 mg/dL (5-40)
== END ==
LOC: OLS.WHLCAR 05:00
PROVIDERS: PCP Family Medicine; Visit Provider Internal Medicine
DX: E55.9 Vitamin D deficiency, unspecified (principal); E78.5 Hyperlipidemia, unspecified; G30.9 Alzheimer's disease, unspecified; F02.80 Dementia in other diseases classified elsewhere, unspecified severity, without behavioral disturbance, psychotic disturbance, mood disturbance, and anxiety; Z79.899 Other long term (current) drug therapy
CPT/HCPCS: 36415; 80061; 80076; 82306; 84443; 85025

== ENCOUNTER → 2023-01-04 | Outpatient (REF) | payer MEDICARE, MEDICAID, SELFPAY ==
[2023-01-04 10:45] LABS: Absolute Lymphocyte Count 2.21 X10^3/uL (0.83-4.51); Absolute Neutrophil Count 3.6 X10^3/uL (2.0-7.7); Basophil# 0.05 X10^3/uL; Basophil% 0.8 % (0-1); Eosinophil# 0.19 X10^3/uL; Eosinophils% 2.9 % (0-5); Hematocrit 42.2 % (40-54); Hemoglobin 13.3 g/dL (13.0-16.5); Lymphocyte # 2.21 X10^3/ul (0.83-4.51); Lymphocyte % 33.5 % (19-41); Mean Corp Hgb Conc 31.5 g/dL (32-36); Mean Corpuscular Hgb 30.4 pg (27.0-32.0); Mean Corpuscular Volume 96.6 fL (80-94); Mean Platelet Vol. 12.1 fl (6.2-12.0); Monocyte# 0.52 X10^3/uL; Monocyte% 7.9 % (0-10); NRBC Flagged by Analyzer 0 % (0-5); Neutrophil # 3.59 X10^3/uL (2.7-7.7); Neutrophil % 54.4 % (47-70); Platelet Count 240 K/mm3 (150-450); RBC Distribution Width CV 15.8 % (11.6-14.6); RBC Distribution Width SD 56.8 fl (35.1-43.9); Red Blood Count 4.37 M/mm3 (4.6-6.2); White Blood Count 6.6 K/mm3 (4.4-11.0)
[2023-01-04 11:18] LABS: Anion Gap 5 (5-15); BUN 22 mg/dL (7-18); BUN/Creat Ratio 15.8 RATIO (10-20); Calcium,Total 9.1 mg/dL (8.5-10.1); Chloride 109 mmol/L (98-107); Creatinine, Serum 1.39 mg/dL (0.70-1.30); EST Glomerular Filtration Rate 53 mL/min (>60); Est Glom Filt Rate - Afr Amer 64 mL/min (>60); Glucose 93 mg/dL (74-106); Potassium 4.6 mmol/L (3.5-5.1); Sodium Level 141 mmol/L (136-145)
== END ==
LOC: OLS.WHLCAR 05:00
PROVIDERS: PCP Family Medicine; Visit Provider Internal Medicine
DX: F02.80 Dementia in other diseases classified elsewhere, unspecified severity, without behavioral disturbance, psychotic disturbance, mood disturbance, and anxiety (principal); G30.9 Alzheimer's disease, unspecified; E78.5 Hyperlipidemia, unspecified
CPT/HCPCS: 36415; 80048; 85025

== ENCOUNTER → 2023-03-26 | Outpatient (REF) | payer MEDICARE, MEDICAID, SELFPAY ==
[2023-03-26 09:24] LABS: Absolute Lymphocyte Count 1.42 X10^3/uL (0.83-4.51); Absolute Neutrophil Count 10.3 X10^3/uL (2.0-7.7); Basophil# 0.06 X10^3/uL; Basophil% 0.5 % (0-1); Eosinophils% 3.8 % (0-5); Hematocrit 41.3 % (40-54); Hemoglobin 13.1 g/dL (13.0-16.5); Lymphocyte # 1.42 X10^3/ul (0.83-4.51); Lymphocyte % 10.8 % (19-41); Mean Corp Hgb Conc 31.7 g/dL (32-36); Mean Corpuscular Hgb 31.3 pg (27.0-32.0); Mean Corpuscular Volume 98.8 fL (80-94); Mean Platelet Vol. 12.6 fl (6.2-12.0); Monocyte# 0.81 X10^3/uL; Monocyte% 6.2 % (0-10); NRBC Flagged by Analyzer 0 % (0-5); Neutrophil % 78.4 % (47-70); Platelet Count 208 K/mm3 (150-450); RBC Distribution Width CV 13.7 % (11.6-14.6); RBC Distribution Width SD 50.4 fl (35.1-43.9); Red Blood Count 4.18 M/mm3 (4.6-6.2); White Blood Count 13.1 K/mm3 (4.4-11.0)
[2023-03-26 09:50] LABS: AST(SGOT) 23 U/L (15-37); Alanine Aminotransfer ALT/SGPT 23 U/L (16-61); Albumin, Serum 3.3 g/dL (3.2-5.0); Alkaline Phosphatase 64 U/L (45-117); Bilirubin, Direct 0.11 mg/dL (0.00-0.30); Protein, Total 6.3 g/dL (6.4-8.2)
== END ==
LOC: OLS.WHLCAR 05:55
PROVIDERS: PCP Family Medicine; Visit Provider Internal Medicine
DX: F02.80 Dementia in other diseases classified elsewhere, unspecified severity, without behavioral disturbance, psychotic disturbance, mood disturbance, and anxiety (principal); G30.9 Alzheimer's disease, unspecified; E78.5 Hyperlipidemia, unspecified; K21.9 Gastro-esophageal reflux disease without esophagitis
CPT/HCPCS: 36415; 80076; 85025

== ENCOUNTER → 2023-04-05 | Outpatient (REF) | payer MEDICARE, MEDICAID, SELFPAY ==
[2023-04-05 07:39] LABS: Absolute Lymphocyte Count 1.71 X10^3/uL (0.83-4.51); Absolute Neutrophil Count 4.8 X10^3/uL (2.0-7.7); Basophil# 0.07 X10^3/uL; Basophil% 0.9 % (0-1); Eosinophil# 0.43 X10^3/uL; Eosinophils% 5.7 % (0-5); Hematocrit 40.9 % (40-54); Hemoglobin 12.9 g/dL (13.0-16.5); Lymphocyte # 1.71 X10^3/ul (0.83-4.51); Lymphocyte % 22.7 % (19-41); Mean Corp Hgb Conc 31.5 g/dL (32-36); Mean Corpuscular Hgb 30.5 pg (27.0-32.0); Mean Corpuscular Volume 96.7 fL (80-94); Mean Platelet Vol. 11.9 fl (6.2-12.0); Monocyte# 0.51 X10^3/uL; Monocyte% 6.8 % (0-10); NRBC Flagged by Analyzer 0 % (0-5); Neutrophil # 4.78 X10^3/uL (2.7-7.7); Neutrophil % 63.4 % (47-70); Platelet Count 228 K/mm3 (150-450); RBC Distribution Width CV 13.2 % (11.6-14.6); RBC Distribution Width SD 47.4 fl (35.1-43.9); Red Blood Count 4.23 M/mm3 (4.6-6.2); White Blood Count 7.5 K/mm3 (4.4-11.0)
[2023-04-05 07:59] LABS: Anion Gap 2 (5-15); BUN 19 mg/dL (7-18); BUN/Creat Ratio 15.1 RATIO (10-20); Calcium,Total 8.9 mg/dL (8.5-10.1); Chloride 113 mmol/L (98-107); Creatinine, Serum 1.26 mg/dL (0.70-1.30); EST Glomerular Filtration Rate 59 mL/min (>60); Est Glom Filt Rate - Afr Amer 71 mL/min (>60); Glucose 95 mg/dL (74-106); Potassium 4.2 mmol/L (3.5-5.1); Sodium Level 143 mmol/L (136-145)
== END ==
LOC: OLS.WHLCAR 05:00
PROVIDERS: PCP Family Medicine; Visit Provider Internal Medicine
DX: F02.80 Dementia in other diseases classified elsewhere, unspecified severity, without behavioral disturbance, psychotic disturbance, mood disturbance, and anxiety (principal); G30.9 Alzheimer's disease, unspecified; E78.5 Hyperlipidemia, unspecified
CPT/HCPCS: 36415; 80048; 85025

== ENCOUNTER → 2023-04-25 | Outpatient (REF) | payer MEDICARE, MEDICAID, SELFPAY ==
[2023-04-25 09:38] LABS: Vitamin D,25 Hydroxy 40.8 ng/mL
== END ==
LOC: OLS.WHLCAR 05:00
PROVIDERS: PCP Family Medicine; Visit Provider Internal Medicine
DX: R05.9 Cough, unspecified (principal); E55.9 Vitamin D deficiency, unspecified
CPT/HCPCS: 36415; 82306

== ENCOUNTER → 2023-08-06 | Outpatient (REF) | payer MEDICARE, MEDICAID, SELFPAY ==
[2023-08-06 08:24] LABS: Absolute Lymphocyte Count 2.08 X10^3/uL (0.83-4.51); Absolute Neutrophil Count 3.2 X10^3/uL (2.0-7.7); Basophil# 0.05 X10^3/uL; Basophil% 0.8 % (0-1); Eosinophil# 0.26 X10^3/uL; Eosinophils% 4.2 % (0-5); Hematocrit 40.6 % (40-54); Lymphocyte # 2.08 X10^3/ul (0.83-4.51); Lymphocyte % 33.6 % (19-41); Mean Corpuscular Hgb 30.7 pg (27.0-32.0); Mean Platelet Vol. 12.1 fl (6.2-12.0); Monocyte# 0.53 X10^3/uL; Monocyte% 8.6 % (0-10); NRBC Flagged by Analyzer 0 % (0-5); Neutrophil # 3.24 X10^3/uL (2.7-7.7); Neutrophil % 52.3 % (47-70); Platelet Count 250 K/mm3 (150-450); RBC Distribution Width CV 14.4 % (11.6-14.6); RBC Distribution Width SD 50.7 fl (35.1-43.9); Red Blood Count 4.23 M/mm3 (4.6-6.2); White Blood Count 6.2 K/mm3 (4.4-11.0)
[2023-08-06 10:23] LABS: ALB/GLOB Ratio 0.9 RATIO (0.9-2.4); AST(SGOT) 27 U/L (15-37); Alanine Aminotransfer ALT/SGPT 21 U/L (16-61); Albumin, Serum 3.2 g/dL (3.2-5.0); Alkaline Phosphatase 68 U/L (45-117); Anion Gap 4 (5-15); BUN 22 mg/dL (7-18); BUN/Creat Ratio 18.8 RATIO (10-20); Calcium,Total 9.3 mg/dL (8.5-10.1); Chloride 113 mmol/L (98-107); Creatinine, Serum 1.17 mg/dL (0.70-1.30); EST Glomerular Filtration Rate 64 mL/min (>60); Est Glom Filt Rate - Afr Amer 77 mL/min (>60); Globulin 3.5 g/dL (2.2-4.2); Glucose 94 mg/dL (74-106); Potassium 4.3 mmol/L (3.5-5.1); Protein, Total 6.7 g/dL (6.4-8.2); Sodium Level 143 mmol/L (136-145)
== END ==
LOC: OLS.WHLCAR 05:00
PROVIDERS: PCP Family Medicine; Visit Provider Internal Medicine
DX: G30.9 Alzheimer's disease, unspecified (principal); F02.80 Dementia in other diseases classified elsewhere, unspecified severity, without behavioral disturbance, psychotic disturbance, mood disturbance, and anxiety; E78.5 Hyperlipidemia, unspecified
CPT/HCPCS: 36415; 80053; 85025

== ENCOUNTER → 2023-08-07 | Outpatient (REF) | payer MEDICARE, MEDICAID, SELFPAY ==
[2023-08-07 09:19] LABS: Absolute Lymphocyte Count 1.91 X10^3/uL (0.83-4.51); Absolute Neutrophil Count 3.8 X10^3/uL (2.0-7.7); Basophil# 0.06 X10^3/uL; Basophil% 0.9 % (0-1); Eosinophil# 0.22 X10^3/uL; Eosinophils% 3.4 % (0-5); Hematocrit 43.9 % (40-54); Hemoglobin 13.9 g/dL (13.0-16.5); Lymphocyte # 1.91 X10^3/ul (0.83-4.51); Lymphocyte % 29.3 % (19-41); Mean Corp Hgb Conc 31.7 g/dL (32-36); Mean Corpuscular Hgb 30.3 pg (27.0-32.0); Mean Corpuscular Volume 95.6 fL (80-94); Mean Platelet Vol. 12.4 fl (6.2-12.0); Monocyte# 0.56 X10^3/uL; Monocyte% 8.6 % (0-10); NRBC Flagged by Analyzer 0 % (0-5); Neutrophil # 3.75 X10^3/uL (2.7-7.7); Neutrophil % 57.5 % (47-70); Platelet Count 266 K/mm3 (150-450); RBC Distribution Width CV 14.2 % (11.6-14.6); RBC Distribution Width SD 49.6 fl (35.1-43.9); Red Blood Count 4.59 M/mm3 (4.6-6.2); White Blood Count 6.5 K/mm3 (4.4-11.0)
[2023-08-07 09:32] LABS: Vitamin D,25 Hydroxy 35.3 ng/mL
[2023-08-07 09:46] LABS: AST(SGOT) 21 U/L (15-37); Alanine Aminotransfer ALT/SGPT 19 U/L (16-61); Albumin, Serum 3.5 g/dL (3.2-5.0); Alkaline Phosphatase 76 U/L (45-117); Anion Gap 4 (5-15); BUN 19 mg/dL (7-18); BUN/Creat Ratio 16.7 RATIO (10-20); Bilirubin, Direct 0.13 mg/dL (0.00-0.30); Calcium,Total 9.5 mg/dL (8.5-10.1); Chloride 111 mmol/L (98-107); Creatinine, Serum 1.14 mg/dL (0.70-1.30); EST Glomerular Filtration Rate 66 mL/min (>60); Est Glom Filt Rate - Afr Amer 80 mL/min (>60); Globulin 3.8 g/dL (2.2-4.2); Glucose 104 mg/dL (74-106); Protein, Total 7.3 g/dL (6.4-8.2); Sodium Level 142 mmol/L (136-145)
== END ==
LOC: OLS.WHLCAR 05:00
PROVIDERS: PCP Family Medicine; Visit Provider Internal Medicine
DX: G30.9 Alzheimer's disease, unspecified (principal); E78.5 Hyperlipidemia, unspecified; K21.9 Gastro-esophageal reflux disease without esophagitis; E55.9 Vitamin D deficiency, unspecified
CPT/HCPCS: 36415; 80048; 80076; 82306; 85025

== ENCOUNTER → 2023-09-24 | Outpatient (REF) | payer MEDICARE, MEDICAID, SELFPAY ==
[2023-09-24 10:09] LABS: Cholesterol 190 mg/dL (200); High Density Lipoprotein 58 mg/dL; Thyroid Stim Hormone (TSH) 4.03 uIU/mL (0.358-3.74); Triglycerides 103 mg/dL; Very Low Density Lipoprotein 21 mg/dL (5-40)
== END ==
LOC: OLS.WHLCAR 05:00
PROVIDERS: PCP Family Medicine; Visit Provider Internal Medicine
DX: E78.5 Hyperlipidemia, unspecified (principal)
CPT/HCPCS: 36415; 80061; 84443

== ENCOUNTER → 2023-10-29 | Outpatient (REF) | payer MEDICARE, MEDICAID, SELFPAY ==
[2023-10-29 09:19] LABS: T4 Free Direct 0.84 ng/dL (0.76-1.46); Thyroid Stim Hormone (TSH) 1.68 uIU/mL (0.358-3.74)
== END ==
LOC: OLS.WHLCAR 05:00
PROVIDERS: PCP Family Medicine; Visit Provider Internal Medicine
DX: E03.9 Hypothyroidism, unspecified (principal); G30.9 Alzheimer's disease, unspecified; E78.5 Hyperlipidemia, unspecified
CPT/HCPCS: 36415; 84439; 84443

== ENCOUNTER → 2023-11-06 | Outpatient (REF) | payer MEDICARE, MEDICAID, SELFPAY ==
[2023-11-06 08:28] LABS: Absolute Lymphocyte Count 2.48 X10^3/uL (0.83-4.51); Absolute Neutrophil Count 3.9 X10^3/uL (2.0-7.7); Basophil# 0.06 X10^3/uL; Basophil% 0.8 % (0-1); Eosinophil# 0.43 X10^3/uL; Eosinophils% 5.8 % (0-5); Hemoglobin 13.2 g/dL (13.0-16.5); Lymphocyte # 2.48 X10^3/ul (0.83-4.51); Lymphocyte % 33.6 % (19-41); Mean Corp Hgb Conc 31.4 g/dL (32-36); Mean Corpuscular Hgb 30.1 pg (27.0-32.0); Mean Corpuscular Volume 95.9 fL (80-94); Mean Platelet Vol. 12.7 fl (6.2-12.0); Monocyte# 0.53 X10^3/uL; Monocyte% 7.2 % (0-10); NRBC Flagged by Analyzer 0 % (0-5); Neutrophil # 3.86 X10^3/uL (2.7-7.7); Neutrophil % 52.2 % (47-70); Platelet Count 232 K/mm3 (150-450); RBC Distribution Width CV 14.5 % (11.6-14.6); RBC Distribution Width SD 51.1 fl (35.1-43.9); Red Blood Count 4.38 M/mm3 (4.6-6.2); White Blood Count 7.4 K/mm3 (4.4-11.0)
[2023-11-06 08:56] LABS: AST(SGOT) 21 U/L (15-37); Alanine Aminotransfer ALT/SGPT 19 U/L (16-61); Albumin, Serum 3.4 g/dL (3.2-5.0); Alkaline Phosphatase 71 U/L (45-117); Anion Gap 5 (5-15); BUN 15 mg/dL (7-18); BUN/Creat Ratio 14.4 RATIO (10-20); Bilirubin, Direct 0.15 mg/dL (0.00-0.30); Calcium,Total 9.3 mg/dL (8.5-10.1); Chloride 112 mmol/L (98-107); Creatinine, Serum 1.04 mg/dL (0.70-1.30); EST Glomerular Filtration Rate 73 mL/min (>60); Est Glom Filt Rate - Afr Amer 89 mL/min (>60); Globulin 3.5 g/dL (2.2-4.2); Glucose 93 mg/dL (74-106); Potassium 3.6 mmol/L (3.5-5.1); Protein, Total 6.9 g/dL (6.4-8.2); Sodium Level 144 mmol/L (136-145)
[2023-11-06 09:25] LABS: Vitamin D,25 Hydroxy 51.4 ng/mL
== END ==
LOC: OLS.WHLCAR 05:15
PROVIDERS: PCP Family Medicine; Visit Provider Internal Medicine
DX: G30.9 Alzheimer's disease, unspecified (principal); E78.5 Hyperlipidemia, unspecified; K21.9 Gastro-esophageal reflux disease without esophagitis; E55.9 Vitamin D deficiency, unspecified; Z79.899 Other long term (current) drug therapy
CPT/HCPCS: 36415; 80048; 80076; 82306; 85025